=== PATIENT | female | born 2000 | race Caucasian/White ===

== ENCOUNTER 2018-11-15 21:25 | Emergency (ER) | payer BC, SELFPAY ==
[2018-11-15 21:25] VITALS: BP 142/98; PULSE 85; RESP 18; TEMP 36.7; O2SAT 97; BMI 32.9
--- NOTE | 2018-11-15 21:40 | ED.DCSUM_ITS ---
- ER Visit Summary Date of Service: 11/15/18 Chief Complaint: Shortness of breath History of Present Illness: The patient is a 18 F history of asthma. States she has had URI symptoms for the last couple days. Greenish sputum. No fever. No chest pain. No hemoptysis. No history of DVT or PE. Today's did not feel like she was getting a deep breath. No leg pain or swelling. Physical Examination: Well-appearing young female. Vital signs are stable afebrile. Pulse ox 97% on room air no hypoxia. HEENT exam unremarkable. Moist weeks membranes. No stridor. Neck nontender no lymphadenopathy. Lungs prolonged expiratory phase. Bilateral few scattered expiratory wheezes. No rales or rhonchi. Equal symmetrical. Heart regular rhythm rate about 85 no murmur. Abdomen soft nontender. Patient is moving all 4 extremities. Calves are nontender without edema or cords. Neurologically she is awake and alert with no focal motor deficits. Test Results: None Emergency Department Course and Treatment: Patient treated with oral prednisone and nebulizer aerosol treatment. On repeat exam she is doing better. Treatment Plan: Prednisone 40 g a day for 1 week. Singulair inhaler. Disposition: Discharge Impression: Acute exacerbation of asthma secondary to viral bronchitis This note was generated with [employer] dictation software. It may contain incorrect words, spelling, and punctuation that were not noted in review of the chart prior to signing ED Disposition - Plan for ED Patient: Referrals: NOT,DEFINED [Primary Care Provider] -
--- NOTE | 2018-11-15 21:40 | ED.DEP ---
ED Disposition - Plan for ED Patient: Disposition: Home or Assisted Living Instructions: ED Bronchitis Asthmatic Prescriptions: Albuterol Aerosols [Ventolin Aerosols] 2.5 mg INHALATION Q2H PRN PRN #20 vial.neb. PRN Reason: Asthma Montelukast [Singulair] 10 mg PO DAILY #20 tab predniSONE tablet 40 mg PO DAILY 7 Days tab Referrals: Fozia Hernandez MD [NON-STAFF] - As Needed Additional Instructions: Prednisone daily until gone. Inhaler and nebulizer aerosol treatments as needed.
[2018-11-15 21:43] VITALS: O2SAT 98
[2018-11-15 21:45] VITALS: BP 131/93; PULSE 85; RESP 16; O2SAT 97
[2018-11-15] MEDS: predniSONE 20 MG Tablet 60 MG PO (21:51)
[2018-11-15 23:31] VITALS: PULSE 95; RESP 16; O2SAT 96
== END 2018-11-15 23:32 | disposition home or self-care (01) ==
LOC: ED 22:07
PROVIDERS: Emergency Provider Emergency Medicine
DX: J45.901 Unspecified asthma with (acute) exacerbation (principal); J20.8 Acute bronchitis due to other specified organisms
CPT/HCPCS: 99282